=== PATIENT | female | born 1955 | race Hispanic/Latino ===

== ENCOUNTER 2023-04-08 15:33 | Outpatient (CLI) | payer OTHER | END 2023-04-08 15:34 | disposition home or self-care (01) | LOC: CSHRAD 15:33 | PROVIDERS: ATTEND Neurological Surgery | DX: M43.16 Spondylolisthesis, lumbar region (principal); M47.816 Spondylosis without myelopathy or radiculopathy, lumbar region; Z98.890 Other specified postprocedural states | CPT/HCPCS: 72100 ==

== ENCOUNTER 2023-05-27 13:57 | Outpatient (CLI) | payer OTHER | END 2023-05-27 13:58 | disposition home or self-care (01) | LOC: CSHRAD 13:57 | PROVIDERS: ATTEND Physician Assistant | DX: M51.36 Other intervertebral disc degeneration, lumbar region (principal); Z98.890 Other specified postprocedural states; M47.816 Spondylosis without myelopathy or radiculopathy, lumbar region | CPT/HCPCS: 72100 ==